=== PATIENT | male | born 1985 | race Caucasian/White ===

== ENCOUNTER 2017-05-04 10:56 | Emergency (ER) | payer SELFPAY ==
[~2017-05-04] VITALS: Ht 180.3 cm; Wt 80.2 kg
[2017-05-04] MEDS ORDERED: KETOROLAC 30 MG/1 ML IM ONE (11:30)
[2017-05-04] MEDS ORDERED: ALBUTEROL SULFATE 2.5 MG/3 ML NPPB ONE (11:30)
[2017-05-04] MEDS ORDERED: KETOROLAC 30 MG/1 ML ONE (11:43)
[2017-05-04] MEDS ORDERED: ALBUTEROL SULFATE 2.5 MG/3 ML ONE (11:48)
[2017-05-04 12:02] LABS: HEMATOCRIT 39.7 % (39.2-51.8); HEMOGLOBIN 13.6 g/dL (13.7-18.0); WHITE BLOOD COUNT 27.4 x10^3/uL (3.4-10)
[2017-05-04 12:08] LABS: BLOOD UREA NITROGEN 12 mg/dL (7-18)
[2017-05-04] MEDS ORDERED: CEFTRIAXONE PMX 1GM/50ML 50 ML IVPB ONE (12:30)
[2017-05-04] MEDS ORDERED: SODIUM CHLORIDE FLUSH 10ML SYR IVF ONE (12:30)
[2017-05-04] MEDS ORDERED: SODIUM CHLORIDE 0.9% 1,000ML IVBOLUS ONE (12:30)
[2017-05-04] MEDS ORDERED: AZITHROMYCIN 500 MG in SODIUM CHLORIDE 0.9% 250 ML IV ONE (12:30)
[2017-05-04] MEDS ORDERED: POTASSIUM CHLORIDE 20 MEQ TAB.ER.PRT PO ONE (12:30)
[2017-05-04 12:53] LABS: DIFF TOTAL CELLS COUNTED 100 CELL DIFF
[2017-05-04 12:55] LABS: VERIFY COUNTS? YES
[2017-05-04] MEDS ORDERED: HYDROcodone/APAP 5/325 TABLET PO ONE (13:30)
[2017-05-04] MEDS ORDERED: CEFTRIAXONE PMX 1GM/50ML 50 ML ONE (13:52)
[2017-05-04] MEDS ORDERED: HYDROcodone/APAP 5/325 TABLET ONE (13:58)
[2017-05-04] MEDS ORDERED: POTASSIUM CHLORIDE 20 MEQ TAB.ER.PRT ONE (13:59)
[2017-05-04 15:51] VITALS: BP 115/82
== END 2017-05-04 16:00 | disposition home or self-care (01) ==
LOC: ED 14:44
DX: A41.9 Sepsis, unspecified organism (principal); J15.9 Unspecified bacterial pneumonia; R65.20 Severe sepsis without septic shock
CPT/HCPCS: 36415; 71010; 80048; 82040; 83605; 85025; 87040; 93005; 94640; 96365; 96372; 96375; 99291; J0456; J0696; J1885; J7030; J7050; J7512; 87181; J7613

== ENCOUNTER 2019-08-10 14:55 | Emergency (ER) | payer MEDICAID ==
[~2019-08-10] VITALS: Ht 182.9 cm; Wt 82.9 kg
[2019-08-10 15:00] VITALS: BP 142/84
[2019-08-10] MEDS ORDERED: DIPH,PERTUSS(ACELL),TET VAC/PF 0.5 ML IM-VACC ONE ×2 (15:17→15:30)
[2019-08-10] MEDS ORDERED: ACETAMINOPHEN 500 MG TABLET ONE (15:17)
[2019-08-10] MEDS ORDERED: CLINDAMYCIN 300 MG CAPSULE ONE (15:19)
[2019-08-10 15:52] LABS: BASOPHILS # (AUTO) 0.05 x10^3/uL (0-0.1); BASOPHILS % (AUTO) 0 % (0-1); EOSINOPHILS # (AUTO) 0.05 x10^3/uL (0-0.4); EOSINOPHILS % (AUTO) 0 % (1-7); LYMPHOCYTES # (AUTO) 1.92 x10^3/uL (1-3.4); LYMPHOCYTES % (AUTO) 14 % (22-44); MD NO; MEAN CORPUSCULAR HEMOGLOBIN 31.3 pg (27.5-34.5); MEAN CORPUSCULAR HGB CONC 33.6 g/dL (33.2-36.2); MEAN CORPUSCULAR VOLUME 93.3 fL (81-97); MEAN PLATELET VOLUME 7.6 fL (7.4-10.4); MONOCYTES # (AUTO) 0.87 x10^3/uL (0.2-0.8); MONOCYTES % (AUTO) 6 % (2-9); NEUTROPHILS # (AUTO) 10.64 x10^3/uL (1.8-6.8); NEUTROPHILS % (AUTO) 79 % (42-75); PLATELET COUNT 322 x10^3/uL (130-400); RED BLOOD COUNT 4.89 x10^6/uL (4.38-5.82); RED CELL DISTRIBUTION WIDTH 13.6 % (9.4-14.8)
[2019-08-10 16:00] LABS: ALBUMIN 3.7 g/dL (3.4-5.0); ANION GAP 9 mmol/L (5-15); CALCIUM 8.9 mg/dL (8.5-10.1); CHLORIDE 106 mmol/L (98-107); CREATININE 0.95 mg/dL (0.7-1.3)
[2019-08-10] MEDS ORDERED: CLINDAMYCIN 300 MG CAPSULE PO ONE (16:00)
[2019-08-10] MEDS ORDERED: ACETAMINOPHEN 500 MG TABLET PO ONE (16:00)
== END 2019-08-10 16:51 | disposition home or self-care (01) ==
LOC: ED 16:40
DX: L03.113 Cellulitis of right upper limb (principal); M25.532 Pain in left wrist; F17.200 Nicotine dependence, unspecified, uncomplicated
CPT/HCPCS: 36415; 80048; 82040; 83605; 85025; 87040; 90471; 90715

== ENCOUNTER 2020-03-18 06:57 | Emergency (ER) | payer MEDICAID ==
[~2020-03-18] VITALS: Ht 182.9 cm; Wt 79.9 kg
[2020-03-18] MEDS ORDERED: ACETAMINOPHEN 500 MG TABLET ONE (07:26)
[2020-03-18] MEDS ORDERED: KETOROLAC 30 MG/1 ML ONE (07:26)
[2020-03-18] MEDS ORDERED: KETOROLAC 30 MG/1 ML IM ONE (07:30)
[2020-03-18] MEDS ORDERED: ACETAMINOPHEN 500 MG TABLET PO ONE (07:30)
--- NOTE | 2020-03-18 07:43 | NUR ---
PT AMBULATORY TO ROOM 38 W/ C/O FEVER X A FEW DAYS AND C/O LBP STARTED A FEW DAYS AGO. PT ALSO HAS C/O GENERAL MALAISE. MILD COUGH PER PT. PT RESTING ON [facility]. NADN. MONITORS APPLIED. VSS.
[2020-03-18 07:47] LABS: MICROSCOPIC NOT IND
[2020-03-18 08:05] VITALS: BP 107/40
--- NOTE | 2020-03-18 08:20 | NUR ---
OTOLOGIST UNABLE TO GET BLOOD FOR LAB WORK. PT UPSET. PT EDUCATED ON NEED FOR LABS. STATES WILL ALLOW ANOTHER OTOLOGIST TO ATTEMPT.
--- NOTE | 2020-03-18 08:54 | NUR ---
AFTER MULTIPLE IV ATTEMPTS FOR LAB PT REFUSING TO HAVE FURTHER ATTEMPTS FOR LAB DRAW DESPITE EDUCATION BY THIS RN. PT REFUSING LABS AND WANTS TO LEAVE. PT CHANGED INTO [facility]. NIKKIE MCCORMACK NOTIFIED.
== END 2020-03-18 09:48 | disposition home or self-care (01) ==
LOC: ED 08:00
DX: U07.1 COVID-19 (principal); F11.129 Opioid abuse with intoxication, unspecified; R50.9 Fever, unspecified; M54.5 Low back pain; M79.10 Myalgia, unspecified site; F17.210 Nicotine dependence, cigarettes, uncomplicated
CPT/HCPCS: 36415; 71045; 81003; 87635; 96372; 99284; J1885